=== PATIENT | female | born 1990 | race Caucasian/White ===

== ENCOUNTER 2018-09-11 11:15 | Emergency (ER) | payer MEDICAID ==
[~2018-09-11] VITALS: Wt 59.0 kg
[~2018-09-11 11:15] MED LIST: FERR27TA PO; PREN1TAB49 PO
[2018-09-11] MEDS ORDERED: HYDR-4011 PO (13:13)
[2018-09-11] MEDS ORDERED: FAMO-96 PO (13:13)
--- NOTE | 2018-09-11 14:14 | ERD ---
ER Documentation Chief Complaint Chief Complaint AP TIA,ITTENT X 2 WEEKS HPI 28-year-old female presenting with abdominal pain times 2 weeks. She describes her pain epigastric region as he states it randomly comes and goes. She does correlate it mildly to eating but is unsure if it happens every time. She state s the pain resolved spontaneously. Has nausea but no vomiting. Denies fevers. Has not taken medications for symptoms. Denies medical problems. NKDA. Surgical history appendectomy. Up-to-date on vaccinations ROS All systems reviewed and are negative except as per history of present illness. Medications Home Meds Active Scripts Hydrocodone/Acetaminophen ([place] 5-325 Tablet) 1 Each Tablet, 1 TAB PO Q6H PRN for PAIN, #7 TAB Prov:TAY RODRIGUEZ PA-C 09/11/18 Famotidine* (Pepcid*) 20 Mg Tablet, 20 MG PO BID for 4 Days, #30 TAB Prov:TAY RODRIGUEZ PA-C 09/11/18 Reported Medications Vits W-Ca,Fe,Fa(<1MG) () 1 Tab Tablet, 1 TAB PO DAILY 03/07/12 Ferrous Sulfate (Iron) 1 Tab Tablet, 1 TAB PO BID 03/07/12 Vits W-Ca,Fe,Fa(<1MG) () 1 Tab Tablet, 1 TAB PO 03/05/12 Allergies Allergies: Coded Allergies: No Known Allergies (Verified Allergy, 03/05/12) PMhx/Soc History of Surgery: No Anesthesia Reaction: No Hx Neurological Disorder: No Hx Respiratory Disorders: No Hx Cardiac Disorders: No Hx Psychiatric Problems: No Hx Miscellaneous Medical Probl: No Hx Alcohol Use: No Hx Substance Use: No Smoking Status: Never smoker FmHx Family History: No diabetes, No coronary disease, No other Physical Exam Vitals Physical Exam GENERAL: The patient is well-appearing, well-nourished, in no acute distress HEENT: Atraumatic. Conjunctivae are pink. Pupils equal, round, and reactive to light. There is no scleral icterus. Tympanic membranes clear bilaterally. Oropharynx clear. NECK: C-spine is soft and supple. There is no meningismus. There is no cervical lymphadenopathy. CHEST: Clear to auscultation bilaterally. There are no rales, wheezes or rhonchi. HEART: Regular rate and rhythm. No murmurs, clicks, rubs or gallops. ABDOMEN: Normal active bowel sounds. No distention. No organomegaly. Mild tenderness palpation in the epigastric region with no rebound tenderness. Results 24 hrs Laboratory Tests Test 09/11/18 12:00 White Blood Count 8.8 10^3/ul Red Blood Count 4.75 10^6/ul Hemoglobin 11.6 g/dl Hematocrit 37.8 % Mean Corpuscular Volume 79.6 fl Mean Corpuscular Hemoglobin 24.4 pg Mean Corpuscular Hemoglobin Concent 30.7 g/dl Red Cell Distribution Width 15.5 % Platelet Count 222 10^3/UL Mean Platelet Volume 12.3 fl Immature Granulocytes % 0.200 % Neutrophils % 70.9 % Lymphocytes % 21.7 % Monocytes % 5.1 % Eosinophils % 1.4 % Basophils % 0.7 % Nucleated Red Blood Cells % 0.0 /100WBC Immature Granulocytes # 0.020 10^3/ul Neutrophils # 6.2 10^3/ul Lymphocytes # 1.9 10^3/ul Monocytes # 0.5 10^3/ul Eosinophils # 0.1 10^3/ul Basophils # 0.1 10^3/ul Nucleated Red Blood Cells # 0.0 10^3/ul Urine Color YELLOW Urine Clarity SLIGHTLY CLOUDY Urine pH 7.0 Urine Specific Black 1.009 Urine Ketones NEGATIVE mg/dL Urine Nitrite NEGATIVE mg/dL Urine Bilirubin NEGATIVE mg/dL Urine Urobilinogen NEGATIVE mg/dL Urine Leukocyte Esterase 3+ Rafael/ul Urine Microscopic RBC 1 /HPF Urine Microscopic WBC 23 /HPF Urine Squamous Epithelial Cells FEW /HPF Urine Bacteria FEW /HPF Urine Hemoglobin NEGATIVE mg/dL Urine Glucose NEGATIVE mg/dL Urine Total Protein NEGATIVE mg/dl Urine Test NEGATIVE Sodium Level 140 mmol/L Potassium Level 4.0 mmol/L Chloride Level 103 mmol/L Carbon Dioxide Level 24 mmol/L Anion Gap 13 Blood Urea Nitrogen 12 mg/dl Creatinine 0.62 mg/dl Est Glomerular Filtrat Rate mL/min > 60 mL/min Glucose Level 108 mg/dl Calcium Level 9.6 mg/dl Total Bilirubin 0.2 mg/dl Direct Bilirubin 0.00 mg/dl Indirect Bilirubin 0.2 mg/dl Aspartate Amino Transf (AST/SGOT) 92 IU/L Alanine Aminotransferase (ALT/SGPT) 39 IU/L Alkaline Phosphatase 82 IU/L Total Protein 9.2 g/dl Albumin 4.8 g/dl Globulin 4.40 g/dl Albumin/Globulin Ratio 1.09 Lipase 113 U/L Procedures/MDM DIAGNOSTIC IMAGING REPORT Patient: VARINDER NG : 1990 Age: 28 Sex: F MR #: [id number] DOS: 09/11/18 1151 Ordering MD: TIFFANY RODRIGUEZ PA-C Location: [facility] Room/Bed: PROCEDURE: US Abdomen (right upper quadrant). CLINICAL INDICATION: Abdominal pain TECHNIQUE: Multiple real-time longitudinal and transverse images of the right upper quadrant of the abdomen were acquired utilizing a curved array transducer. Images were reviewed on a high-resolution PACS workstation. COMPARISON: None FINDINGS: The liver is normal in size and echogenicity without focal mass or intrahepatic biliary dilatation. Multiple stones are present in the gallbladder. There is no pericholecystic fluid or gallbladder wall thickening. No intrahepatic biliary dilatation is seen. The common bile duct measures 7 mm in maximal dimension. The visualized portions of the pancreas are unremarkable with obscuration of the tail of the pancreas. No free fluid is identified. The right kidney measures 10.0 cm in length. There is normal echogenicity within the right kidney. There is no perinephric fluid collection. No hydronep hrosis, mass, or calculus is seen. IMPRESSION: 1. Cholelithiasis. 2. Prominent CBD. Correlate with bilirubin levels. If there is concern for cholestasis, consider MRCP. MDM: 28-year-old female presenting with epigastric pain. Patient has findings consistent with cholelithiasis. I have low suspicion for choledocholithiasis, cholecystitis, cholangitis or pancreatitis. Patient did have some mild elevation noted of the CBD however blood work is normal and pain is well controlled. Patient is recommended to return in 2 days for repeat blood work to determine if liver enzymes are elevating. I do not feel there is indication for MRCP at today's visit. Patient is discharged stricter precautions and told to return sooner if symptoms change or worsen. All questions answered at discharge Departure Diagnosis: Primary Impression: Gallstones Condition: Stable Patient Instructions: Gallstones Referrals: COMM[facility] YOU HAVE RECEIVED A MEDICAL SCREENING EXAM AND THE RESULTS INDICATE THAT YOU DO NOT HAVE A CONDITION THAT REQUIRES URGENT TREATMENT IN THE EMERGENCY DEPARTMENT. FURTHER EVALUATION AND TREATMENT OF YOUR CONDITION CAN WAIT UNTIL YOU ARE SEEN IN YOUR DOCTORS OFFICE WITHIN THE NEXT 1-2 DAYS. IT IS YOUR RESPONSIBILITY TO MAKE AN APPOINTMENT FOR FOLOW-UP CARE. IF YOU HAVE A PRIMARY DOCTOR --you should call your primary doctor and schedule an appointment IF YOU DO NOT HAVE A PRIMARY DOCTOR YOU CAN CALL OUR PHYSICIAN REFERRAL HOTLINE AT IF YOU CAN NOT AFFORD TO SEE A PHYSICIAN YOU CAN CHOSE FROM THE FOLLOWING [facility] [address] [facility] [address] [facility] [facility] [address] [facility] [address] [facility] [address] [facility] [facility] [address] Additional Instructions: FOLLOW UP WITH YOUR PRIMARY CARE PHYSICIAN TOMORROW.Return to this facility if you are not improving as expected. TAY RODRIGUEZ PA-C Sep 11, 2018 14:14 SACHIN CUNNINGHAM DO Sep 25, 2018 10:14
== END 2018-09-11 13:48 | disposition home or self-care (01) ==
LOC: FTE 11:15
DX: K80.20 Calculus of gallbladder without cholecystitis without obstruction (principal)
CPT/HCPCS: 36415; 76705; 80053; 81001; 83690; 84703; 85025